=== PATIENT | male | born 1960 | race Caucasian/White ===

== ENCOUNTER 2016-11-19 14:49 | Inpatient (IN) | payer BC ==
[2016-11-19] MEDS ORDERED: Sodium Chloride 0.9% 1,000 ML IV STA ×3 (15:10→23:59)
--- NOTE | 2016-11-19 15:31 | ED PDOC ---
HPI: Abdomen Time Seen by Provider: 11/19/16 14:57 Chief Complaint (Nursing): GI Problem Chief Complaint (Provider): GI Problem History Per: Patient History/Exam Limitations: no limitations Onset/Duration Of Symptoms: Days (x3 days) Current Symptoms Are (Timing): Still Present Additional Complaint(s): 56 y/o male who presents to the emergency department with a complaint of one syncopal episode (lasted no more than 5 minutes) this morning. Associated with urinary incontinence, dry mouth, and sweating. Patient states on 11/17/2016 he woke up around 3am feeling nauseous and vomited black material once. Then reports on 11/18/2016 experiencing 1 episode of black diarrhea. Denies bowel incontinence, head injury, headache, paresthesia, weakness, chest pain, shortness of breath, palpitations, and abdominal pain. PMD: Dr. Jag Patten MD Past Medical History Reviewed: Historical Data, Nursing Documentation, Vital Signs Vital Signs: Last Vital Signs Temp 99.0 F 11/20/16 12:00 Pulse 83 11/20/16 16:00 Resp 18 11/20/16 14:00 BP 101/65 11/20/16 16:00 Pulse Ox 100 11/20/16 16:00 - Medical History PMH: Hypercholesterolemia - Surgical History Surgical History: No Surg Hx - Family History Family History: States: Unknown Family Hx - Social History Current smoker - smoking cessation education provided: No Ex-Smoker (has not smoked in the last 12 months): Yes Alcohol: > 2 Drinks/Day (4 shots vodka daily) Drugs: Cannabis, Cocaine - Home Medications Home Medications: Ambulatory Orders Medication Instructions Recorded No Known Home Med 11/20/16 - Allergies Allergies/Adverse Reactions: Allergies Allergy/AdvReac Type Severity Reaction Status Date / Time No Known Allergies Allergy Verified 11/19/16 14:51 Review of Systems ROS Statement: Except As Marked, All Systems Reviewed And Found Negative Constitutional: Positive for: Sweats. Negative for: Weakness, Other (head injury) ENT: Positive for: Other (Dry mouth) Cardiovascular: Negative for: Chest Pain, Palpitations Respiratory: Negative for: Shortness of Breath Gastrointestinal: Positive for: Nausea, Vomiting (1 episode: black material), Diarrhea (1 episode). Negative for: Abdominal Pain Genitourinary Male: Positive for: Incontinence (Urinary). Negative for: Other ( Bowel Incontinence) Neurological: Positive for: Other (1 syncopal episode (had resolved since; only lasted 5 minutes)). Negative for: Headache Physical Exam - Reviewed Nursing Documentation Reviewed: Yes Vital Signs Reviewed: Yes - Physical Exam Appears: Positive for: Non-toxic, No Acute Distress Head Exam: Positive for: ATRAUMATIC, NORMOCEPHALIC Skin: Positive for: Normal Color, Warm, Dry Eye Exam: Positive for: Normal appearance, PERRL. Negative for: Conjunctival injection ENT: Positive for: Normal ENT Inspection. Negative for: Pharyngeal Erythema Neck: Positive for: Normal, Supple Cardiovascular/Chest: Positive for: Regular Rate, Rhythm. Negative for: Murmur Respiratory: Positive for: Normal Breath Sounds. Negative for: Accessory Muscle Use, Respiratory Distress Gastrointestinal/Abdominal: Positive for: Soft, Tenderness (Minimal right sided abdominal tenderness). Negative for: Guarding, Rebound Rectal: Positive for: Other (w/ palliative care coordinator: Dark stool guaiac positive. No gross blood). Negative for: Normal Exam Neurologic/Psych: Positive for: Alert, Oriented - Laboratory Results Result Diagrams: 11/20/16 12:00 11/20/16 12:00 Medical Decision Making Medical Decision Making: Time: 14:57 Initial impression: GI Bleed and syncope Initial plan: --ABO/RH Type Stat --Type and Screen Stat --ABD & Pelvis IV Contrast --EKG (Electrocardiogram) --Alcohol Serum Stat --COMP Metabolic Panel --Drug Screen, Urine Stat --Troponin I Stat --ED Urine Dipstick (POC) --EKG-ED (EDNURTX) Stat --CBC w/ differential --Partial Thromboplastin Time (COAG) --Prothrombin Time (COAG) --Chest Portable (RAD) --Sodium Chloride 1,000 ml IV 500 mls/hr --Protonix INJ 40 mg IV --AccuCheck --Urinalysis Stat --Revaluation Scribe Attestation: Documented by Snow Mayer, acting as a scribe for Marlin Tran MD. Provider Scribe Attestation: All medical record entries made by the Scribe were at my direction and personally dictated by me. I have reviewed the chart and agree that the record accurately reflects my personal performance of the history, physical exam, medical decision making, and the department course for this patient. I have also personally directed, reviewed, and agree with the discharge instructions and disposition. ED OBSERVATION Time of observation admission: 19:00 - Observation admission statement Patient is being placed in observation because:: GI bleed Disposition - Clinical Impression Clinical Impression: Gastrointestinal hemorrhage - Patient ED Disposition Is Patient to be Admitted: Transfer of Care - Disposition Disposition Time: 19:00 Condition: STABLE Patient Signed Over To: Abdi Pressley Handoff Comments: Pending CT head/chest/abd/pelvis.
[2016-11-19 16:04] LABS: BASO # 0.1 K/uL (0.0-0.2); BASO % 0.6 % (0.0-2.0); EOS # 0.1 K/uL (0.0-0.7); EOS % 0.8 % (0.0-4.0); HEMATOCRIT 37.3 % (35.0-51.0); LYMPH # 2.8 K/uL (1.0-4.3); LYMPH % 15.3 % (20.0-40.0); MEAN CELL VOLUME 98.4 fl (80.0-94.0); MEAN CORPUSCULAR HEMOGLOBIN 32.5 pg (27.0-31.0); MEAN CORPUSCULAR HGB CONC 33.1 g/dL (33.0-37.0); MEAN PLATELET VOLUME 8.3 fl (7.2-11.7); MONO # 1.2 K/uL (0.0-0.8); MONO % 6.8 % (0.0-10.0); NEUT # 13.8 K/uL (1.8-7.0); NEUT % 76.5 % (50.0-75.0); RED CELL DISTRIBUTION WIDTH 12.8 % (11.5-14.5); WHITE BLOOD COUNT 18.1 K/uL (4.8-10.8)
[2016-11-19 16:08] LABS: PARTIAL THROMBOPLASTIN TIME 23.1 SECONDS (23.3-32.5)
[2016-11-19 16:25] LABS: ALB/GLOB RATIO 1.4 (1.0-2.1); ALCOHOL SERUM < 10 mg/dl (0-10); ALKALINE PHOSPHATASE 81 U/L (38-126); ALT/SGPT 26 U/L (21-72); AST/SGOT 25 U/L (17-59); BILIRUBIN,TOTAL 1.1 mg/dl (0.2-1.3); BLOOD UREA NITROGEN 64 mg/dl (9-20); CALCIUM 9.3 mg/dL (8.4-10.2); CARBON DIOXIDE 26 mmol/L (22-30); CHLORIDE 99 mmol/L (98-107); GFR AFRICAN-AMERICAN > 60; GLUCOSE,RANDOM 170 mg/dL (75-110); MAGNESIUM 1.6 MG/DL (1.6-2.3); POTASSIUM 4.6 MMOL/L (3.6-5.0); SODIUM 140 mmol/l (132-148); TOTAL PROTEIN 6.6 G/DL (6.3-8.2)
[2016-11-19 16:54] LABS: THYROID STIMULATING HORMONE 3.05 mIU/ML (0.46-4.68)
[2016-11-19 17:32] LABS: RBC URINE 1 /hpf (0-3); URINE BILIRUBIN NEGATIVE (NEGATIVE); URINE BLOOD NEGATIVE (NEGATIVE); URINE COLOR YELLOW (YELLOW); URINE GLUCOSE (UA) NEG (Normal); URINE KETONE 20 mg/dL (NEGATIVE); URINE LEUKOCYTE ESTERASE NEG Leu/uL (Negative); URINE PROTEIN NEGATIVE (NEGATIVE); URINE UROBILINOGEN 0.2-1.0 mg/dL (0.2-1.0); WBC URINE 2 /hpf (0-5)
--- NOTE | 2016-11-19 19:23 | ED PDOC ---
- Laboratory Results Result Diagrams: 11/20/16 00:08 11/19/16 15:59 - ECG O2 Sat by Pulse Oximetry: 100 - Critical Care Total Time (In Min): 60 Medical Decision Making Medical Decision Makin:00 Patient endorsed over to me by Marlin Tran MD, pending remainder of ED workup, reevaluation and disposition. 23:50 Patient is found on the floor next to the bed with (nurses patientside) covered in melanotic stool. Patient is pale, diaphoretic and initially confused. * vitals are immediately taken * 2 units of blood from the blood bank are ordered stat * second IV line is placed * second CBC is drawn * fluids are hanging * patient's color is returning * page GI at [facility] * admit to ICU 00:[address] Snyder, agrees with management. Says to put 2 additional units of blood, be made aware if patient has another episode, and to admit patient to the ICU. Discussed case with Herbert Lewis MD, says he will monitor the patient overnight at ICU. Discussed case with Alvin Painting MD who will admit the patient. Scribe Attestation: Documented by Rosalba Holt, acting as a scribe for Abdi Pressley MD. Provider Scribe Attestation: All medical record entries made by the Scribe were at my direction and personally dictated by me. I have reviewed the chart and agree that the record accurately reflects my personal performance of the history, physical exam, medical decision making, and the department course for this patient. I have also personally directed, reviewed, and agree with the discharge instructions and disposition. Scribe Attestation: Documented by Beti Aranda, acting as a scribe for Abdi Pressley MD. Provider Scribe Attestation: All medical record entries made by the Scribe were at my direction and personally dictated by me. I have reviewed the chart and agree that the record accurately reflects my personal performance of the history, physical exam, medical decision making, and the department course for this patient. I have also personally directed, reviewed, and agree with the discharge instructions and disposition. Disposition - Clinical Impression Clinical Impression: Gastrointestinal hemorrhage - POA Present On Arrival: None - Disposition Disposition: Admitted as In-Patient Disposition Time: 00:45 Condition: CRITICAL
[2016-11-19] MEDS ORDERED: Iodixanol 320 MG/ML 100 ML BOTTLE IV ONE (21:12)
[2016-11-19] MEDS ORDERED: Sodium Chloride 0.9% 50 ML IV ONE (22:03)
[2016-11-19] MEDS ORDERED: Pantoprazole 40 MG in Sodium Chloride 0.9% 100 ML IVPB STA (23:59)
[2016-11-20 00:13] LABS: BASO # 0.1 K/uL (0.0-0.2); BASO % 0.3 % (0.0-2.0); EOS % 0.1 % (0.0-4.0); HEMATOCRIT 27.1 % (35.0-51.0); LYMPH # 3.5 K/uL (1.0-4.3); LYMPH % 16.4 % (20.0-40.0); MEAN CELL VOLUME 99.5 fl (80.0-94.0); MEAN CORPUSCULAR HEMOGLOBIN 32.4 pg (27.0-31.0); MEAN CORPUSCULAR HGB CONC 32.6 g/dL (33.0-37.0); MONO # 1.5 K/uL (0.0-0.8); MONO % 7.3 % (0.0-10.0); NEUT # 16.1 K/uL (1.8-7.0); NEUT % 75.9 % (50.0-75.0); RED CELL DISTRIBUTION WIDTH 12.6 % (11.5-14.5); WHITE BLOOD COUNT 21.3 K/uL (4.8-10.8)
[2016-11-20] MEDS ORDERED: Sterile Water 10 ML IV ONE (00:16)
--- NOTE | 2016-11-20 00:42 | CP.PCM.CON ---
History of Present Illness - History of Present Illness History of Present Illness: CC: melena, hematemesis HPI: This is a 56 y/o male with MHx significant for heavy EtOH use who comes to the ER initially with c/o a syncopal episode this AM (about 5 min per his estimate). His history is also significant for having episodes of dark black vomit yesterday and melena since yesterday. He had never had these symptoms before. Denies any CP/SOB/Abd pain/f/c. In the ER, patient had a massive episode of melena and another syncopal/presyncopal episode. ROS: 14 systems reviewed, negative other than HPI MHx/SHx: None aside from heavy EtOH use Allergies: NKDA Medications: None Family Hx: None patient is able to recount Social Hx: lives alone, 4+ drinks daily for years, no tobacco, occasional cocaine No surrogate decision maker. Patient is willing to receive CPR and be intubated if necessary. Past Patient History - Past Social History Alcohol: > 2 Drinks/Day (4 shots vodka daily) Drugs: Cannabis, Cocaine - CARDIAC Hx Hypercholesterolemia: Yes - PSYCHIATRIC Hx Substance Use: Yes Meds Allergies/Adverse Reactions: Allergies Allergy/AdvReac Type Severity Reaction Status Date / Time No Known Allergies Allergy Verified 11/19/16 14:51 - Medications Medications: Current Medications Sodium Chloride (Sodium Chloride 0.9%) 1,000 mls @ 1,000 mls/hr IV .Q1H STA Stop: 11/20/16 00:58 Pantoprazole Sodium 40 mg/ (Sodium Chloride) 100 mls @ 20 mls/hr IVPB STAT STA PRN Reason: 8 MG/HR Stop: 11/20/16 04:58 Physical Exam - Constitutional Appears: No Acute Distress - Head Exam Head Exam: ATRAUMATIC, NORMOCEPHALIC - Eye Exam Eye Exam: EOMI, PERRL - ENT Exam ENT Exam: Mucous Membranes Dry - Neck Exam Neck exam: Positive for: Full Rom - Respiratory Exam Respiratory Exam: Clear to Auscultation Bilateral, NORMAL BREATHING PATTERN - Cardiovascular Exam Cardiovascular Exam: Tachycardia, +S1, +S2 - GI/Abdominal Exam GI & Abdominal Exam: Normal Bowel Sounds, Soft - Extremities Exam Extremities exam: Positive for: full ROM, normal inspection - Neurological Exam Neurological exam: Alert, CN II-XII Intact, Oriented x3 - Psychiatric Exam Psychiatric exam: Normal Affect, Normal Mood - Skin Skin Exam: Dry, Pallor, Warm Results - Vital Signs Recent Vital Signs: Last Vital Signs Temp 97.7 F 11/19/16 14:51 Pulse 111 H 11/19/16 18:30 Resp 20 11/19/16 18:30 BP 92/60 L 11/19/16 18:30 Pulse Ox 100 11/20/16 00:26 - Labs Result Diagrams: 11/20/16 00:08 11/19/16 15:59 Labs: Laboratory Results - last 24 hr 11/19/16 11/19/16 11/20/16 20:49 23:00 00:02 WBC RBC Hgb Hct MCV MCH MCHC RDW Plt Count MPV Neut % (Auto) Lymph % (Auto) Divide % (Auto) Eos % (Auto) Baso % (Auto) Neut # Lymph # Divide # Eos # Baso # NT-Pro-B Natriuret Pep 139 Blood Type Confirm O POSITIVE Crossmatch See Detail 11/20/16 00:08 WBC 21.3 H RBC 2.72 L Hgb 8.8 L D Hct 27.1 L MCV 99.5 H MCH 32.4 H MCHC 32.6 L RDW 12.6 Plt Count 213 MPV 8.0 Neut % (Auto) 75.9 H Lymph % (Auto) 16.4 L Divide % (Auto) 7.3 Eos % (Auto) 0.1 Baso % (Auto) 0.3 Neut # 16.1 H Lymph # 3.5 Divide # 1.5 H Eos # 0.0 Baso # 0.1 NT-Pro-B Natriuret Pep Blood Type Confirm Crossmatch - EKG Data EKG shows normal: Sinus rhythm Rate: Normal - Impressions Impression: Intra vent conduction delay - Imaging and Cardiology Chest x-ray Status: Image reviewed by me (no acute findings), Report reviewed by me CT scan - abdomen Status: Pending Assessment & Plan (1) Gastrointestinal hemorrhage Assessment and Plan: 56 y/o male with likely EtOH related GI hemorrhage with tachycardia/borderline hypotension. -ICU admission -Patient to receive 2 more U of PRBC -Protonix drip -GI consult (informed) -No DVT PPx at this time given active bleeding Status: Acute
[2016-11-20] MEDS ORDERED: Sodium Chloride 0.9% 1,000 ML IV SCH (00:45)
[2016-11-20] MEDS: Pantoprazole 40 MG in Sodium Chloride 0.9% 100 ML IVPB SCH ×5 (01:45→21:04)
[2016-11-20 02:11] VITALS: BMI 29.7
[2016-11-20] MEDS ORDERED: Multivitamin (MVI) 10 ML, Thiamine 100 MG, Folic Acid 1 MG in Sodium Chloride 0.9% 1,00... IV ONE (07:22)
--- NOTE | 2016-11-20 08:29 | RAD ---
HISTORY: Syncope COMPARISON: No prior. FINDINGS: LUNGS: Hazy opacity in the right lung base. Nodular opacity seen in the right hilum. PLEURA: No significant pleural effusion identified, no pneumothorax apparent. CARDIOVASCULAR: Normal. OSSEOUS STRUCTURES: No significant abnormalities. VISUALIZED UPPER ABDOMEN: Upper abdomen is suboptimally evaluated. OTHER FINDINGS: None. IMPRESSION: Mild hazy opacity in the right lung base which could represent atelectasis versus pneumonia. Nodular opacity in the right hilum. Recommend PA lateral chest radiographs.
[2016-11-20] MEDS ORDERED: Pneumococcal 23-Valent Vaccine IM ONE (09:00)
[2016-11-20] MEDS ORDERED: Influenza Vaccine(5yr & older) 0.5 ML/45 MCG IM ONE (09:00)
--- NOTE | 2016-11-20 09:18 | CP.PCM.HP ---
History of Present Illness - History of Present Illness History of Present Illness: pt admitted for gib. states started w/ nausea then went to bathroom and had large black bm, had some n/v that was black. described as "crude oil". no brbpr. has been drinking 4-5 drinks of vodca cranberry x 30yrs. recently quit smoking. pt os rmg [facility]. no othe rmedical problems. no abd pain. nof c , n/v/d at present. bw noted. events in er noted. all imaging noted. gi consult pending. pt rec'd prbc overnight. am labs pending. case d/c w/ icu attending. Present on Admission - Present on Admission Any Indicators Present on Admission: No Review of Systems - Gastrointestinal Gastrointestinal: As Per HPI, Hematemesis, Hematochezia Past Patient History - Past Medical History & Family History Past Medical History?: Yes - Past Social History Smoking Status: Former Smoker - CARDIAC Hx Cardiac Disorders: Yes - PULMONARY Hx Respiratory Disorders: Yes - NEUROLOGICAL Hx Neurological Disorder: No - HEENT Hx HEENT Problems: No - RENAL Hx Chronic Kidney Disease: No - ENDOCRINE/METABOLIC Hx Endocrine Disorders: No - HEMATOLOGICAL/ONCOLOGICAL Hx Blood Disorders: No - INTEGUMENTARY Hx Dermatological Problems: No - MUSCULOSKELETAL/RHEUMATOLOGICAL Hx Musculoskeletal Disorders: No - GENITOURINARY/GYNECOLOGICAL Hx Genitourinary Disorders: No - PSYCHIATRIC Hx Psychophysiologic Disorder: No - ANESTHESIA Hx Anesthesia: No Meds Allergies/Adverse Reactions: Allergies Allergy/AdvReac Type Severity Reaction Status Date / Time No Known Allergies Allergy Verified 11/19/16 14:51 Physical Exam - Constitutional Appears: Well, Non-toxic, No Acute Distress - Head Exam Head Exam: ATRAUMATIC, NORMAL INSPECTION, NORMOCEPHALIC - Eye Exam Eye Exam: EOMI, Normal appearance, PERRL Pupil Exam: NORMAL ACCOMODATION, PERRL - ENT Exam ENT Exam: Mucous Membranes Moist, Normal Exam - Neck Exam Neck exam: Positive for: Normal Inspection - Respiratory Exam Respiratory Exam: Clear to Auscultation Bilateral, NORMAL BREATHING PATTERN - Cardiovascular Exam Cardiovascular Exam: REGULAR RHYTHM, RRR, +S1, +S2 - GI/Abdominal Exam GI & Abdominal Exam: Normal Bowel Sounds, Soft. absent: Tenderness - Extremities Exam Extremities exam: Positive for: full ROM, normal capillary refill, normal inspection, pedal pulses present - Back Exam Back exam: FULL ROM, NORMAL INSPECTION - Neurological Exam Neurological exam: Alert, CN II-XII Intact, Normal Gait, Oriented x3, Reflexes Normal - Psychiatric Exam Psychiatric exam: Normal Affect, Normal Mood - Skin Skin Exam: Dry, Intact, Normal Color, Warm Results - Vital Signs Recent Vital Signs: Last Vital Signs Temp 99.9 F H 11/20/16 07:37 Pulse 84 11/20/16 07:37 Resp 14 11/20/16 07:37 BP 90/54 L 11/20/16 07:37 Pulse Ox 98 11/20/16 07:37 - Labs Result Diagrams: 11/20/16 00:08 11/19/16 15:59 Assessment & Plan (1) Gastrointestinal hemorrhage Assessment and Plan: gi protonix gtt rocephin ivf prbc icu care monitor for alcohol withdrawal Status: Acute (2) DVT prophylaxis Assessment and Plan: scd nad aehose no anticoag r/t gib Status: Acute Decision To Admit - Pt Status Changed To: Hospital Disposition Of: Inpatient - Admit Certification Admit to Inpatient:: After my assessment, the patient will require hospitalization for at least two midnights. This is because of the severity of symptoms shown, intensity of services needed, and/or the medical risk in this patient being treated as an outpatient. - . Bed Request Type: Intensive Care Admitting Physician: Shani Reza
--- NOTE | 2016-11-20 09:35 | CARD ---
APPROVED REPORT EKG Measurement Heart [id number] <Conclusion> Normal sinus rhythm Right bundle branch block Abnormal ECG
--- NOTE | 2016-11-20 09:49 | CT ---
PROCEDURE: CT Chest with contrast (Pulmonary Angiogram) HISTORY: SOB COMPARISON: None available. TECHNIQUE: Axial computed tomography images were obtained of the chest in the pulmonary arterial phase of enhancement. Coronal and sagittal reformatted images were created and reviewed. Intravenous contrast dose: 100 mL. Radiation dose: Total exam DLP = 1087.27 mGy-cm. This CT was performed using one or more of the following dose reduction techniques: Automated exposure control, adjustment of the mA and/or KV according to patient size, and/or use of iterative reconstruction technique. FINDINGS: PULMONARY ARTERIES: No evidence of filling defects in the main, left and right and proximal lobar arteries. Segmental and subsegmental arteries suboptimally evaluated due to poor timing of contrast bolus and respiratory motion artifact. AORTA: No evidence of aneurysm. The study is not diagnostic for aortic dissection. LUNGS: Centrilobular emphysematous changes. PLEURAL SPACES: Unremarkable. No effusion or pneuomothorax. HEART: Unremarkable. No cardiomegaly. No significant pericardial effusion. LYMPH NODES: No lymphadenopathy. BONES, CHEST WALL: Unremarkable. No fracture or destructive lesion OTHER FINDINGS: Mild thickening of the esophagus with bubbly soft tissue density seen in the mid esophagus. This could be food particles versus mucous. Evaluate for reflux disease. Indicated, upper endoscopy can be obtained. IMPRESSION: Limited evaluation. No large filling defect main, left and right and proximal lobar arteries. Segmental and subsegmental arteries suboptimally evaluated due to poor timing of contrast bolus and respiratory motion artifact. Centrilobular emphysematous changes. Please note that this report is in general agreement with the preliminary report provided by [facility].
--- NOTE | 2016-11-20 09:56 | CT ---
PROCEDURE: CT HEAD WITHOUT CONTRAST. HISTORY: Syncope COMPARISON: None available. TECHNIQUE: Axial computed tomography images were obtained through the head/brain without intravenous contrast. Mildly limited evaluation due to artifact from patient motion. Radiation dose: Total exam DLP = 1272.07 mGy-cm. This CT was performed using one or more of the following dose reduction techniques: Automated exposure control, adjustment of the mA and/or KV according to patient size, and/or use of iterative reconstruction technique. FINDINGS: HEMORRHAGE: No intracranial hemorrhage. BRAIN: No mass effect or edema. Mild volume loss. No CT evidence of acute territorial infarct. VENTRICLES: Unremarkable. No hydrocephalus. CALVARIUM: Unremarkable. PARANASAL SINUSES: Unremarkable as visualized. No significant inflammatory changes. MASTOID AIR CELLS: Unremarkable as visualized. No inflammatory changes. OTHER FINDINGS: None. IMPRESSION: No CT evidence of acute intracranial hemorrhage or acute territorial infarct. Acute infarction may be CT occult within first 24 hours. If a focal deficit persists, consider followup CT or MRI for further evaluation. Please note that this report is in general agreement with the preliminary report provided by [facility].
--- NOTE | 2016-11-20 10:07 | CT ---
PROCEDURE: CT Abdomen and Pelvis with contrast HISTORY: UGIB, LGIB COMPARISON: None. TECHNIQUE: Computed tomography images of the abdomen and pelvis were obtained. Coronal and sagittal reformatted images were reconstructed. Contrast dose: 100 mL. Radiation dose: Total exam DLP = 1087.27 mGy-cm. This CT was performed using one or more of the following dose reduction techniques: Automated exposure control, adjustment of the mA and/or KV according to patient size, and/or use of iterative reconstruction technique. FINDINGS: LOWER THORAX: Please refer to CT chest done on the same day. LIVER: Hypoattenuation of the liver parenchyma is suggestive of hepatic steatosis. GALLBLADDER AND BILE DUCTS: Collapsed gallbladder limiting evaluation. No significant intra or extrahepatic biliary ductal dilatation. PANCREAS: Fatty infiltration of the pancreas. SPLEEN: Unremarkable. ADRENALS: Unremarkable. No mass. KIDNEYS AND URETERS: Unremarkable. No hydronephrosis. No solid mass. VASCULATURE: Mild scattered atherosclerotic calcification throughout the abdominal aorta and its main branches. No abdominal aortic aneurysm. BOWEL: No bowel obstruction. In the medial wall of the gastroesophageal junction, there is a irregular masslike protuberance, measuring 2.6 x 1.5 x 1.8 centimeters, best seen on image 43, series 8. Underlying mass cannot be excluded. Upper endoscopy recommended. In the mesentery, just left of midline there is a soft tissue nodule measuring 1 x 1.6 x 1.4 centimeters. Minimal peripheral calcifications are seen surrounding this nodule. APPENDIX: Normal appendix. PERITONEUM: Unremarkable. No free fluid. No free air. LYMPH NODES: Unremarkable. No enlarged lymph nodes. BLADDER: Unremarkable. REPRODUCTIVE: Unremarkable. BONES: Diffuse sclerotic density seen in the right ischial bone. Additional sclerotic density also noted in the posterior right pubic bone. OTHER FINDINGS: Small fat containing right inguinal hernia. IMPRESSION: In the medial wall of the gastroesophageal junction, there is a irregular masslike protuberance, measuring 2.6 x 1.5 x 1.8 centimeters, best seen on image 43, series 8. While this could represent collapsed gastroesophageal junction, underlying mass should be considered. Upper endoscopy recommended. Sclerotic density in the right ischial bone and in the posterior right pubic bone. This is nonspecific. Bone scan can be obtained to evaluate for any metabolic activity. Nonspecific 1 x 1.6 x 1.4 centimeter soft tissue nodule in the mesentery with minimal peripheral calcifications. Hypoattenuation of the liver suggestive of hepatic steatosis. Please note that this report is discordant with preliminary report.
[2016-11-20 12:23] LABS: BASO # 0.1 K/uL (0.0-0.2); BASO % 0.4 % (0.0-2.0); EOS # 0.1 K/uL (0.0-0.7); EOS % 0.5 % (0.0-4.0); HEMATOCRIT 28.8 % (35.0-51.0); LYMPH # 1.9 K/uL (1.0-4.3); LYMPH % 16.4 % (20.0-40.0); MEAN CORPUSCULAR HEMOGLOBIN 30.7 pg (27.0-31.0); MEAN CORPUSCULAR HGB CONC 34.1 g/dL (33.0-37.0); MEAN PLATELET VOLUME 7.7 fl (7.2-11.7); MONO # 0.8 K/uL (0.0-0.8); MONO % 6.8 % (0.0-10.0); NEUT # 8.9 K/uL (1.8-7.0); NEUT % 75.9 % (50.0-75.0); RED CELL DISTRIBUTION WIDTH 17.6 % (11.5-14.5); WHITE BLOOD COUNT 11.8 K/uL (4.8-10.8)
[2016-11-20 12:25] LABS: CHLORIDE 105 mmol/L (98-107); SODIUM 138 mmol/l (132-148)
[2016-11-20 12:28] LABS: CARBON DIOXIDE 26 mmol/L (22-30); GFR AFRICAN-AMERICAN > 60; GLUCOSE,RANDOM 100 mg/dL (75-110)
[2016-11-20 12:29] LABS: BLOOD UREA NITROGEN 38 mg/dl (9-20); CALCIUM 8.1 mg/dL (8.4-10.2); LIPASE 30 U/L (23-300)
[2016-11-20 12:30] LABS: MEAN CELL VOLUME 90.1 fl (80.0-94.0)
--- NOTE | 2016-11-20 12:58 | CP.PCM.CON ---
History of Present Illness - History of Present Illness History of Present Illness: 56 yo male admitted with hematemesis and melena. Patient uses alcohol daily. Over the past few days feeling dizzy. Review of Systems - Constitutional Constitutional: absent: Chills - EENT Eyes: absent: Blurred Vision Nose/Mouth/Throat: absent: Epistaxis - Cardiovascular Cardiovascular: absent: Chest Pain - Respiratory Respiratory: absent: Cough - Gastrointestinal Gastrointestinal: absent: Abdominal Pain - Genitourinary Genitourinary: absent: Change in Urinary Stream Past Patient History - Past Medical History & Family History Past Medical History?: Yes - Past Social History Smoking Status: Former Smoker - CARDIAC Hx Cardiac Disorders: Yes - PULMONARY Hx Respiratory Disorders: Yes - NEUROLOGICAL Hx Neurological Disorder: No - HEENT Hx HEENT Problems: No - RENAL Hx Chronic Kidney Disease: No - ENDOCRINE/METABOLIC Hx Endocrine Disorders: No - HEMATOLOGICAL/ONCOLOGICAL Hx Blood Disorders: No - INTEGUMENTARY Hx Dermatological Problems: No - MUSCULOSKELETAL/RHEUMATOLOGICAL Hx Musculoskeletal Disorders: No - GENITOURINARY/GYNECOLOGICAL Hx Genitourinary Disorders: No - PSYCHIATRIC Hx Psychophysiologic Disorder: No - ANESTHESIA Hx Anesthesia: No Meds Allergies/Adverse Reactions: Allergies Allergy/AdvReac Type Severity Reaction Status Date / Time No Known Allergies Allergy Verified 11/19/16 14:51 - Medications Medications: Current Medications Sodium Chloride (Sodium Chloride 0.9%) 1,000 mls @ 100 mls/hr IV .Q10H IGGY Stop: 11/20/16 20:44 Last Admin: 11/20/16 02:05 Dose: 100 mls/hr Pantoprazole Sodium 40 mg/ (Sodium Chloride) 100 mls @ 20 mls/hr IVPB Q5H IGGY PRN Reason: 8 MG/HR Last Admin: 11/20/16 11:16 Dose: 20 mls/hr Ceftriaxone Sodium 1 gm/ (Sodium Chloride) 100 mls @ 100 mls/hr IVPB DAILY IGGY Last Admin: 11/20/16 08:37 Dose: 100 mls/hr Multivitamins/Vitamin C 10 ml/Thiamine HCl 100 mg/ Folic Acid 1 mg/ Sodium Chloride 1,011.2 mls @ 50 mls/hr IV .[id number] ONE Stop: 11/21/16 03:35 Last Admin: 11/20/16 11:18 Dose: 50 mls/hr Ondansetron HCl (Zofran Inj) 4 mg IVP Q6H PRN PRN Reason: Nausea/Vomiting Physical Exam - Head Exam Head Exam: ATRAUMATIC - Eye Exam Eye Exam: Normal appearance Pupil Exam: NORMAL ACCOMODATION - ENT Exam ENT Exam: Mucous Membranes Moist - Neck Exam Neck exam: Positive for: Normal Inspection - Respiratory Exam Respiratory Exam: Clear to Auscultation Bilateral - Cardiovascular Exam Cardiovascular Exam: REGULAR RHYTHM - GI/Abdominal Exam GI & Abdominal Exam: Normal Bowel Sounds, Soft. absent: Tenderness Results - Vital Signs Recent Vital Signs: Last Vital Signs Temp 99.9 F H 11/20/16 07:37 Pulse 84 11/20/16 07:37 Resp 14 11/20/16 07:37 BP 90/54 L 11/20/16 07:37 Pulse Ox 98 11/20/16 07:37 - Labs Result Diagrams: 11/20/16 12:00 11/20/16 12:00 Labs: Laboratory Results - last 24 hr 11/20/16 12:00 WBC 11.8 H RBC 3.20 L Hgb 9.8 L Hct 28.8 L MCV 90.1 D MCH 30.7 MCHC 34.1 RDW 17.6 H Plt Count 129 L D MPV 7.7 Neut % (Auto) 75.9 H Lymph % (Auto) 16.4 L [place] % (Auto) 6.8 Eos % (Auto) 0.5 Baso % (Auto) 0.4 Neut # 8.9 H Lymph # 1.9 [place] # 0.8 Eos # 0.1 Baso # 0.1 Sodium 138 Potassium 4.0 Chloride 105 Carbon Dioxide 26 Anion Gap 12 BUN 38 H Creatinine 0.9 Est GFR ( Amer) > 60 Est GFR (Non-Af Amer) > 60 Random Glucose 100 Calcium 8.1 L Total Creatine Kinase 49 L Lipase 30 Assessment & Plan (1) Gastrointestinal hemorrhage Assessment and Plan: Massive upper GI bleeding. Despite alcohol history no evidence on labs or imaging of cirrhosis. No evidence of active bleeding since last night. Pantoprazole 8 mg/hour. May have clears today. NPO past midnight. CT shows possible lesion at EG junction. Upper endoscopy tomorrow. If patient develops active bleeding will do it emergently sooner. Status: Acute
[2016-11-20] MEDS ORDERED: DiphenhydrAMINE 50 mg/ml Inj IVP STA (20:57)
[2016-11-20 22:33] LABS: RBC URINE 274 /hpf (0-3); URINE BILIRUBIN NEGATIVE (NEGATIVE); URINE BLOOD LARGE (NEGATIVE); URINE COLOR YELLOW (YELLOW); URINE GLUCOSE (UA) NEG (Normal); URINE KETONE NEGATIVE (NEGATIVE); URINE LEUKOCYTE ESTERASE NEG Leu/uL (Negative); URINE PROTEIN NEGATIVE (NEGATIVE); URINE UROBILINOGEN 0.2-1.0 mg/dL (0.2-1.0); WBC URINE 1 /hpf (0-5)
[2016-11-21] MEDS: Pantoprazole 40 MG in Sodium Chloride 0.9% 100 ML IVPB SCH ×2 (02:15→06:47)
[2016-11-21 05:51] LABS: BASO % 0.4 % (0.0-2.0); EOS # 0.1 K/uL (0.0-0.7); EOS % 0.8 % (0.0-4.0); LYMPH # 1.2 K/uL (1.0-4.3); LYMPH % 14.4 % (20.0-40.0); MEAN CELL VOLUME 90.5 fl (80.0-94.0); MEAN CORPUSCULAR HEMOGLOBIN 31.1 pg (27.0-31.0); MEAN CORPUSCULAR HGB CONC 34.4 g/dL (33.0-37.0); MEAN PLATELET VOLUME 8.2 fl (7.2-11.7); MONO # 0.8 K/uL (0.0-0.8); MONO % 9.6 % (0.0-10.0); NEUT # 6.1 K/uL (1.8-7.0); NEUT % 74.8 % (50.0-75.0); RED CELL DISTRIBUTION WIDTH 17.9 % (11.5-14.5); WHITE BLOOD COUNT 8.2 K/uL (4.8-10.8)
[2016-11-21 06:02] LABS: BLOOD UREA NITROGEN 20 mg/dl (9-20); CALCIUM 8.2 mg/dL (8.4-10.2); CARBON DIOXIDE 25 mmol/L (22-30); CHLORIDE 104 mmol/L (98-107); GFR AFRICAN-AMERICAN > 60; GLUCOSE,RANDOM 90 mg/dL (75-110); POTASSIUM 3.6 MMOL/L (3.6-5.0); SODIUM 139 mmol/l (132-148)
--- NOTE | 2016-11-21 07:30 | CP.PCM.PN ---
Subjective - Date & Time of Evaluation Date of Evaluation: 11/21/16 Time of Evaluation: 07:30 - Subjective Subjective: pt doing wellm no distress. no further n/v/d, no abd pain. for egd today. bw noted. nsr on monitor. banana bag infusing Objective - Vital Signs/Intake and Output Vital Signs (last 24 hours): Temp Pulse Resp BP Pulse Ox 100 F H 79 21 93/60 L 96 11/21/16 04:00 11/21/16 06:00 11/21/16 06:00 11/21/16 06:00 11/21/16 06:00 Intake and Output: 11/21/16 11/21/16 06:59 18:59 Intake Total 960 Output Total 1100 Balance -140 - Medications Medications: Current Medications Pantoprazole Sodium 40 mg/ (Sodium Chloride) 100 mls @ 20 mls/hr IVPB Q5H IGGY PRN Reason: 8 MG/HR Last Admin: 11/21/16 06:47 Dose: 20 mls/hr Ceftriaxone Sodium 1 gm/ (Sodium Chloride) 100 mls @ 100 mls/hr IVPB DAILY IGGY Last Admin: 11/20/16 08:37 Dose: 100 mls/hr Ondansetron HCl (Zofran Inj) 4 mg IVP Q6H PRN PRN Reason: Nausea/Vomiting - Labs Labs: 11/21/16 05:10 11/21/16 05:10 PT 11.3 SECONDS (9.6-11.2) H 11/19/16 15:14 INR 1.09 (0.92-1.08) H 11/19/16 15:14 APTT 23.1 SECONDS (23.3-32.5) L 11/19/16 15:14 - Constitutional Appears: Well, Non-toxic, No Acute Distress - Head Exam Head Exam: ATRAUMATIC, NORMAL INSPECTION, NORMOCEPHALIC - Eye Exam Eye Exam: EOMI, Normal appearance, PERRL Pupil Exam: NORMAL ACCOMODATION, PERRL - ENT Exam ENT Exam: Mucous Membranes Moist, Normal Exam - Neck Exam Neck Exam: Full ROM, Normal Inspection. absent: Lymphadenopathy - Respiratory Exam Respiratory Exam: Clear to Ausculation Bilateral, NORMAL BREATHING PATTERN - Cardiovascular Exam Cardiovascular Exam: REGULAR RHYTHM, RRR, +S1, +S2. absent: Murmur - GI/Abdominal Exam GI & Abdominal Exam: Soft, Normal Bowel Sounds. absent: Tenderness - Extremities Exam Extremities Exam: Full ROM, Normal Capillary Refill, Normal Inspection. absent : Joint Swelling, Pedal Edema - Back Exam Back Exam: NORMAL INSPECTION - Neurological Exam Neurological Exam: Alert, Awake, CN II-XII Intact, Normal Gait, Oriented x3 - Psychiatric Exam Psychiatric exam: Normal Affect, Normal Mood - Skin Skin Exam: Dry, Intact, Normal Color, Warm Assessment and Plan (1) Gastrointestinal hemorrhage Status: Acute (2) DVT prophylaxis Status: Acute - Assessment and Plan (Free Text) Assessment: (1) Gastrointestinal hemorrhage Assessment and Plan: gi protonix gtt rocephin ivf prbc icu care monitor for alcohol withdrawal trending h/h Status: Acute (2) DVT prophylaxis Assessment and Plan: scd nad aehose no anticoag r/t gib Status: Acute
--- NOTE | 2016-11-21 08:52 | RAD ---
PROCEDURE: CHEST RADIOGRAPH, 1 VIEW HISTORY: fever COMPARISON: Comparison is made to 11/19/2016 FINDINGS: LUNGS: Clear. PLEURA: No pneumothorax or pleural fluid seen. CARDIOVASCULAR: Normal. OSSEOUS STRUCTURES: No significant abnormalities. VISUALIZED UPPER ABDOMEN: Normal. OTHER FINDINGS: None. IMPRESSION: No active disease. No significant interval change compared to the previous exam.
--- NOTE | 2016-11-21 11:06 | CP.PCM.PN ---
Subjective - Date & Time of Evaluation Date of Evaluation: 11/21/16 Time of Evaluation: 11:05 Objective - Vital Signs/Intake and Output Vital Signs (last 24 hours): Temp Pulse Resp BP Pulse Ox 98.9 F 77 22 107/60 99 11/21/16 07:49 11/21/16 07:49 11/21/16 07:49 11/21/16 07:49 11/21/16 07:49 Intake and Output: 11/21/16 11/21/16 06:59 18:59 Intake Total 960 Output Total 1100 Balance -140 - Medications Medications: Current Medications Pantoprazole Sodium 40 mg/ (Sodium Chloride) 100 mls @ 20 mls/hr IVPB Q5H IGGY PRN Reason: 8 MG/HR Last Admin: 11/21/16 06:47 Dose: 20 mls/hr Ceftriaxone Sodium 1 gm/ (Sodium Chloride) 100 mls @ 100 mls/hr IVPB DAILY IGGY Last Admin: 11/20/16 08:37 Dose: 100 mls/hr Dextrose/Sodium Chloride (Dextrose 5%-0.9% Ns 500 Ml) 1,000 mls @ 75 mls/hr IV .[id number] IGGY Ondansetron HCl (Zofran Inj) 4 mg IVP Q6H PRN PRN Reason: Nausea/Vomiting - Labs Labs: 11/21/16 05:10 11/21/16 05:10 PT 11.3 SECONDS (9.6-11.2) H 11/19/16 15:14 INR 1.09 (0.92-1.08) H 11/19/16 15:14 APTT 23.1 SECONDS (23.3-32.5) L 11/19/16 15:14
--- NOTE | 2016-11-21 11:11 | CP.CCUPN ---
<Wade Marie - Last Filed: 11/21/16 16:54> CCU Subjective - Physician Review Events Since Last Encounter (Free Text): 11/21/16 13:09 Patient AAOx3 sitting in bed upright in no distress with no events overnight still NPO and on I.V. fluids hemodynamically stable s/p transfusion of 4 units PRBC pending evaluation by GI for endoscopy. 11/21/16 14:28 CCU Objective - Vital Signs / Intake & Output Vital Signs (Last 4 hours): Vital Signs Temp Pulse Resp BP Pulse Ox 11/21/16 10:00 97 H 20 97/62 L 98 11/21/16 07:49 98.9 F 77 22 107/60 99 Intake and Output (Last 8hrs): Intake & Output 11/20/16 11/21/16 11/21/16 22:59 06:59 14:59 Intake Total 400 560 Output Total 1400 500 Balance -1000 60 Intake: IV 280 560 Oral 120 Output: Urine 1400 500 Urine, Voided 1400 500 Other: # Voids Urine, Voided 4 - Physical Exam Head: Positive for: Atraumatic, Normocephalic Conjunctiva: Negative for: Icteric Neck: Positive for: Normal Range of Motion Respiratory/Chest: Positive for: Clear to Auscultation Cardiovascular: Positive for: Regular Rate and Rhythm, Normal S1, S2 Abdomen: Negative for: Tenderness Lower Extremity: Positive for: Normal Inspection Neurological: Positive for: Normal Sensory Function, Memory Normal Skin: Positive for: Warm Psychiatric: Positive for: Alert, Oriented x 3 - Medications Active Medications: Active Medications Generic Name Dose Route Start Last Admin Trade Name Trq PRN Reason Stop Dose Admin Pantoprazole Sodium 40 mg/ 100 mls @ 20 mls/hr 11/20/16 00:45 11/21/16 06:47 Sodium Chloride IVPB 20 mls/hr Q5H IGGY Administration 8 MG/HR Ceftriaxone Sodium 1 gm/ 100 mls @ 100 mls/hr 11/20/16 09:00 11/20/16 08:37 Sodium Chloride IVPB 100 mls/hr DAILY IGGY Administration Dextrose/Sodium Chloride 1,000 mls @ 75 mls/hr 11/21/16 11:00 Dextrose 5%-0.9% Ns 500 Ml IV .[id number] IGGY Ondansetron HCl 4 mg 11/20/16 00:39 Zofran Inj IVP Q6H PRN Nausea/Vomiting - Patient Studies Lab Studies: Lab Studies 11/21/16 11/20/16 11/20/16 Range/Units 05:10 21:00 20:30 WBC 8.2 (4.8-10.8) K/uL RBC 2.99 L (4.40-5.90) Mil/uL Hgb 9.3 L (12.0-18.0) g/dL Hct 27.0 L (35.0-51.0) % MCV 90.5 (80.0-94.0) fl MCH 31.1 H (27.0-31.0) pg MCHC 34.4 (33.0-37.0) g/dL RDW 17.9 H (11.5-14.5) % Plt Count 110 L (130-400) K/uL MPV 8.2 (7.2-11.7) fl Neut % (Auto) 74.8 (50.0-75.0) % Lymph % (Auto) 14.4 L (20.0-40.0) % [place] % (Auto) 9.6 (0.0-10.0) % Eos % (Auto) 0.8 (0.0-4.0) % Baso % (Auto) 0.4 (0.0-2.0) % Neut # 6.1 (1.8-7.0) K/uL Lymph # 1.2 (1.0-4.3) K/uL [place] # 0.8 (0.0-0.8) K/uL Eos # 0.1 (0.0-0.7) K/uL Baso # 0.0 (0.0-0.2) K/uL Sodium 139 (132-148) mmol/l Potassium 3.6 (3.6-5.0) MMOL/L Chloride 104 (98-107) mmol/L Carbon Dioxide 25 (22-30) mmol/L Anion Gap 14 (10-20) BUN 20 (9-20) mg/dl Creatinine 0.8 (0.8-1.5) mg/dL Est GFR ( Amer) > 60 Est GFR (Non-Af Amer) > 60 Random Glucose 90 (75-110) mg/dL Lactic Acid (0.7-2.1) MMOL/L Calcium 8.2 L (8.4-10.2) mg/dL Total Creatine Kinase (55-170) U/L Lipase (23-300) U/L Urine Color Yellow (YELLOW) Urine Clarity Clear (Clear) Urine pH 6.0 (5.0-8.0) Ur Specific [place] 1.018 (1.003-1.030) Urine Protein Negative (NEGATIVE) mg/dL Urine Glucose (UA) Neg (Normal) mg/dL Urine Ketones Negative (NEGATIVE) mg/dL Urine Blood Large (NEGATIVE) Urine Nitrate Negative (NEGATIVE) Urine Bilirubin Negative (NEGATIVE) Urine Urobilinogen 0.2-1.0 (0.2-1.0) mg/dL Ur Leukocyte Esterase Neg (Negative) Benjamin/uL Urine RBC (Auto) 274 H (0-3) /hpf Urine Microscopic WBC 1 (0-5) /hpf Influenza Typ A,B (EIA) Negative for flu a/b (NEGATIVE) 11/20/16 Range/Units 12:00 WBC 11.8 H (4.8-10.8) K/uL RBC 3.20 L (4.40-5.90) Mil/uL Hgb 9.8 L (12.0-18.0) g/dL Hct 28.8 L (35.0-51.0) % MCV 90.1 D (80.0-94.0) fl MCH 30.7 (27.0-31.0) pg MCHC 34.1 (33.0-37.0) g/dL RDW 17.6 H (11.5-14.5) % Plt Count 129 L D (130-400) K/uL MPV 7.7 (7.2-11.7) fl Neut % (Auto) 75.9 H (50.0-75.0) % Lymph % (Auto) 16.4 L (20.0-40.0) % [place] % (Auto) 6.8 (0.0-10.0) % Eos % (Auto) 0.5 (0.0-4.0) % Baso % (Auto) 0.4 (0.0-2.0) % Neut # 8.9 H (1.8-7.0) K/uL Lymph # 1.9 (1.0-4.3) K/uL [place] # 0.8 (0.0-0.8) K/uL Eos # 0.1 (0.0-0.7) K/uL Baso # 0.1 (0.0-0.2) K/uL Sodium 138 (132-148) mmol/l Potassium 4.0 (3.6-5.0) MMOL/L Chloride 105 (98-107) mmol/L Carbon Dioxide 26 (22-30) mmol/L Anion Gap 12 (10-20) BUN 38 H (9-20) mg/dl Creatinine 0.9 (0.8-1.5) mg/dL Est GFR ( Amer) > 60 Est GFR (Non-Af Amer) > 60 Random Glucose 100 (75-110) mg/dL Lactic Acid 1.8 (0.7-2.1) MMOL/L Calcium 8.1 L (8.4-10.2) mg/dL Total Creatine Kinase 49 L (55-170) U/L Lipase 30 (23-300) U/L Urine Color (YELLOW) Urine Clarity (Clear) Urine pH (5.0-8.0) Ur Specific [place] (1.003-1.030) Urine Protein (NEGATIVE) mg/dL Urine Glucose (UA) (Normal) mg/dL Urine Ketones (NEGATIVE) mg/dL Urine Blood (NEGATIVE) Urine Nitrate (NEGATIVE) Urine Bilirubin (NEGATIVE) Urine Urobilinogen (0.2-1.0) mg/dL Ur Leukocyte Esterase (Negative) Benjamin/uL Urine RBC (Auto) (0-3) /hpf Urine Microscopic WBC (0-5) /hpf Influenza Typ A,B (EIA) (NEGATIVE) Laboratory Results - last 24 hr 11/20/16 11/20/16 11/20/16 12:00 20:30 21:00 WBC 11.8 H RBC 3.20 L Hgb 9.8 L Hct 28.8 L MCV 90.1 D MCH 30.7 MCHC 34.1 RDW 17.6 H Plt Count 129 L D MPV 7.7 Neut % (Auto) 75.9 H Lymph % (Auto) 16.4 L [place] % (Auto) 6.8 Eos % (Auto) 0.5 Baso % (Auto) 0.4 Neut # 8.9 H Lymph # 1.9 [place] # 0.8 Eos # 0.1 Baso # 0.1 Sodium 138 Potassium 4.0 Chloride 105 Carbon Dioxide 26 Anion Gap 12 BUN 38 H Creatinine 0.9 Est GFR ( Amer) > 60 Est GFR (Non-Af Amer) > 60 Random Glucose 100 Lactic Acid 1.8 Calcium 8.1 L Total Creatine Kinase 49 L Lipase 30 Urine Color Yellow Urine Clarity Clear Urine pH 6.0 Ur Specific [place] 1.018 Urine Protein Negative Urine Glucose (UA) Neg Urine Ketones Negative Urine Blood Large Urine Nitrate Negative Urine Bilirubin Negative Urine Urobilinogen 0.2-1.0 Ur Leukocyte Esterase Neg Urine RBC (Auto) 274 H Urine Microscopic WBC 1 Influenza Typ A,B (EIA) Negative for flu a/b 11/21/16 05:10 WBC 8.2 RBC 2.99 L Hgb 9.3 L Hct 27.0 L MCV 90.5 MCH 31.1 H MCHC 34.4 RDW 17.9 H Plt Count 110 L MPV 8.2 Neut % (Auto) 74.8 Lymph % (Auto) 14.4 L [place] % (Auto) 9.6 Eos % (Auto) 0.8 Baso % (Auto) 0.4 Neut # 6.1 Lymph # 1.2 [place] # 0.8 Eos # 0.1 Baso # 0.0 Sodium 139 Potassium 3.6 Chloride 104 Carbon Dioxide 25 Anion Gap 14 BUN 20 Creatinine 0.8 Est GFR ( Amer) > 60 Est GFR (Non-Af Amer) > 60 Random Glucose 90 Lactic Acid Calcium 8.2 L Total Creatine Kinase Lipase Urine Color Urine Clarity Urine pH Ur Specific [place] Urine Protein Urine Glucose (UA) Urine Ketones Urine Blood Urine Nitrate Urine Bilirubin Urine Urobilinogen Ur Leukocyte Esterase Urine RBC (Auto) Urine Microscopic WBC Influenza Typ A,B (EIA) Fingerstick Blood Sugar Results: 97 Review of Systems - Review of Systems Review of Systems: 12 Systems reviewed with patient, found to be negative. Critical Care Progress Note - Extremities/Vascular Does the Patient have a Central Venous Catheter?: No - Nutrition Nutrition: Nutrition Category Date Time Status Liquid Diet [DIET] Diets 11/20/16 Lunch Active Assessment/Plan - Assessment and Plan (Free Text) Assessment: 56 y.o. male with hx of polysubstance abuse admitted for lower GI bleed hemodynamically stable with an Hgb of 9.3 this morning s/p Upper GI scope today showing non-bleeding duodenal Ulcer 1- Upper GI Bleed a- Advance diet as tolerated b- Discontinue fluids d- I.V. protonix 40mg IV Q12 e- Continue I.V. Ceftriaxone f- Continue I.V. Zforan g- Repeat CBC in a.m. h- If stable discharge to follow up with GI in 2 weeks 2- DVT prophylaxis a- SCD due to active bleed <Stefano Good M - Last Filed: 11/21/16 16:57> CCU Objective - Vital Signs / Intake & Output Vital Signs (Last 4 hours): Vital Signs Temp Pulse Resp BP Pulse Ox 11/21/16 13:05 98 F 76 15 84/52 L 98 Intake and Output (Last 8hrs): Intake & Output 11/21/16 11/21/16 11/21/16 06:59 14:59 22:59 Intake Total 560 200 Output Total 500 Balance 60 200 Intake: IV 560 200 Output: Urine 500 Urine, Voided 500 - Medications Active Medications: Active Medications Generic Name Dose Route Start Last Admin Trade Name Freq PRN Reason Stop Dose Admin Ceftriaxone Sodium 1 gm/ 100 mls @ 100 mls/hr 11/20/16 09:00 11/20/16 08:37 Sodium Chloride IVPB 100 mls/hr DAILY IGGY Administration Dextrose/Sodium Chloride 1,000 mls @ 75 mls/hr 11/21/16 11:00 Dextrose 5%-0.9% Ns 500 Ml IV .[id number] IGGY Ondansetron HCl 4 mg 11/20/16 00:39 Zofran Inj IVP Q6H PRN Nausea/Vomiting Pantoprazole Sodium 40 mg 11/21/16 21:00 Protonix Inj IVP Q12 IGGY - Patient Studies Lab Studies: Lab Studies 11/21/16 11/20/16 11/20/16 Range/Units 05:10 21:00 20:30 WBC 8.2 (4.8-10.8) K/uL RBC 2.99 L (4.40-5.90) Mil/uL Hgb 9.3 L (12.0-18.0) g/dL Hct 27.0 L (35.0-51.0) % MCV 90.5 (80.0-94.0) fl MCH 31.1 H (27.0-31.0) pg MCHC 34.4 (33.0-37.0) g/dL RDW 17.9 H (11.5-14.5) % Plt Count 110 L (130-400) K/uL MPV 8.2 (7.2-11.7) fl Neut % (Auto) 74.8 (50.0-75.0) % Lymph % (Auto) 14.4 L (20.0-40.0) % [place] % (Auto) 9.6 (0.0-10.0) % Eos % (Auto) 0.8 (0.0-4.0) % Baso % (Auto) 0.4 (0.0-2.0) % Neut # 6.1 (1.8-7.0) K/uL Lymph # 1.2 (1.0-4.3) K/uL [place] # 0.8 (0.0-0.8) K/uL Eos # 0.1 (0.0-0.7) K/uL Baso # 0.0 (0.0-0.2) K/uL Sodium 139 (132-148) mmol/l Potassium 3.6 (3.6-5.0) MMOL/L Chloride 104 (98-107) mmol/L Carbon Dioxide 25 (22-30) mmol/L Anion Gap 14 (10-20) BUN 20 (9-20) mg/dl Creatinine 0.8 (0.8-1.5) mg/dL Est GFR ( Amer) > 60 Est GFR (Non-Af Amer) > 60 Random Glucose 90 (75-110) mg/dL Calcium 8.2 L (8.4-10.2) mg/dL Urine Color Yellow (YELLOW) Urine Clarity Clear (Clear) Urine pH 6.0 (5.0-8.0) Ur Specific [place] 1.018 (1.003-1.030) Urine Protein Negative (NEGATIVE) mg/dL Urine Glucose (UA) Neg (Normal) mg/dL Urine Ketones Negative (NEGATIVE) mg/dL Urine Blood Large (NEGATIVE) Urine Nitrate Negative (NEGATIVE) Urine Bilirubin Negative (NEGATIVE) Urine Urobilinogen 0.2-1.0 (0.2-1.0) mg/dL Ur Leukocyte Esterase Neg (Negative) Benjamin/uL Urine RBC (Auto) 274 H (0-3) /hpf Urine Microscopic WBC 1 (0-5) /hpf Influenza Typ A,B (EIA) Negative for flu a/b (NEGATIVE) Laboratory Results - last 24 hr 11/20/16 11/20/16 11/21/16 20:30 21:00 05:10 WBC 8.2 RBC 2.99 L Hgb 9.3 L Hct 27.0 L MCV 90.5 MCH 31.1 H MCHC 34.4 RDW 17.9 H Plt Count 110 L MPV 8.2 Neut % (Auto) 74.8 Lymph % (Auto) 14.4 L [place] % (Auto) 9.6 Eos % (Auto) 0.8 Baso % (Auto) 0.4 Neut # 6.1 Lymph # 1.2 [place] # 0.8 Eos # 0.1 Baso # 0.0 Sodium 139 Potassium 3.6 Chloride 104 Carbon Dioxide 25 Anion Gap 14 BUN 20 Creatinine 0.8 Est GFR ( Amer) > 60 Est GFR (Non-Af Amer) > 60 Random Glucose 90 Calcium 8.2 L Urine Color Yellow Urine Clarity Clear Urine pH 6.0 Ur Specific [place] 1.018 Urine Protein Negative Urine Glucose (UA) Neg Urine Ketones Negative Urine Blood Large Urine Nitrate Negative Urine Bilirubin Negative Urine Urobilinogen 0.2-1.0 Ur Leukocyte Esterase Neg Urine RBC (Auto) 274 H Urine Microscopic WBC 1 Influenza Typ A,B (EIA) Negative for flu a/b Critical Care Progress Note - Nutrition Nutrition: Nutrition Category Date Time Status Emery [Altered GI/Hepatic Diet] [DIET] Diets 11/21/16 Lunch Active Attending/Attestation - Attestation I have personally seen and examined this patient.: Yes I have fully participated in the care of the patient.: Yes I have reviewed all pertinent clinical information: Yes Notes (Text): 11/21/16 16:57 Today: Monday, November 21, 2016 The Patient was seen and examined at the bedside, Medical records reviewed, all clinical/lab/hemodynamic/radiographic data were reviewed and management issues were discussed and formulated, Events reviewed Pain issues, skin care, head of the bed elevation, GI/DVT prophylaxis, glycemic control were addressed. Agree with above treatment plans as transcribed in Dr. Marie note
[2016-11-21] MEDS ORDERED: Lactated Ringer's 500 ML IV ONE (12:26)
[2016-11-21] MEDS ORDERED: Propofol 10 mg/ml Inj (20 ML) ONE (12:29)
--- NOTE | 2016-11-21 13:50 | PN ---
DATE: 11/20/2016 CRITICAL CARE PROGRESS NOTE LOCATION: The patient in ICU, bed 422. TIME SPENT: 35 minutes. The patient is seen and evaluated at the bedside. Events since admission reviewed by [facility] Joshua iyer. PAST MEDICAL, SURGICAL, AND SOCIAL HISTORY: Reviewed. A 56-year-old male with history of alcohol dependence, substance abuse, admitted with syncopal episod e followed by melena, noted to have a drop in the hemoglobin, hypotensive status post transfusion of packed red blood cells overnight. No further melenotic stool noted. Remains alert, awake, follows c ommands, appropriately. Denies headache, shortness of breath, chest pain, palpitation, abdominal kelly n. No further bowel movement. No chest pain. PHYSICAL EXAMINATION: VITAL SIGNS: Temperature 99.9, heart rate 84, respiratory rate 14-20, thoracoabdominal blood pressur e 90-112/54-71 with mean arterial pressure varying from 66-84. Telemetry: Sinus rhythm. Intake/out put: 2945, output 775. HEAD, EYES, EARS, NOSE, AND THROAT: Pupils are reactive. Conjunctivae are pale. Sclerae are white. NECK: Supple. Trachea is central. CHEST: Bilateral breath sounds. Clear to auscultation. HEART: Rhythm regular. S1, S2 normal. No S3, S4 gallop. No audible murmur or rub. ABDOMEN: Bowel sounds present, soft. EXTREMITIES: Warm, without edema. Peripheral pulses intact. Normal in intensity. Capillary refill normal. SKIN: Without rash. NEUROLOGIC: Nonfocal. CURRENT MEDICATIONS: Ceftriaxone 1 gram IV daily, multivitamin plus vitamin C with thiamine, folic a khang in D5W at 50 mL per hour. Zofran 4 mg IV q. 6 p.r.n., Protonix 40 at 20 mL per hour, 8 mg per ho ur. IMPRESSION: Admitted with syncopal episode of hypovolemic, hypotension, acute anemia associated with blood loss superimposed on chronic disease, gastrointestinal bleeding, upper versus lower, history o f alcohol and cocaine dependence. Continue with current medications. Closely monitor vital signs. Transfuse as needed to keep hemoglobin close to 10. Gastrointestinal evaluation to look for source o f bleeding. Continue Protonix drip. Hold deep venous thrombosis prophylaxis with anticoagulation se condary to gastrointestinal bleeding. Keep n.p.o. until seen by gastrointestinal consult. Dandre Bryant MD cc: 170 TT: 11/20/2016 10:55:53 Confirmation # [id number] Dictation # [id number] jn 11/21/2016 12:49:13
--- NOTE | 2016-11-21 14:37 | PQF GENQUE ---
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 OR; Unable to determine 11/20/2016:GI consult: admitted with hematemesis and melena. Pateint uses alcohol daily. Assesment:Gastrointestinal hemorrhage: Assessment: Massive upper GI bleeding. Despite alcohol history no evidence on labs or imaging of cirrhosis. No evidence of active bleeding since last night. Pantoprazole 8 mg/hour. May have clears today .NPO past midnight. CT shows possible lesion at EG junction. Upper endoscopy tomorrow. Status: Acute 11/21/2016:Endoscopy report: Esophagitis with no bleeding: a few localized, small non-bleeding erosions were found in the gastric antrum. There were no stigmata of recent bleeding. Biopsies for H-Pylori; One non-bleeding cratered duodenal ulcer with no stigmata of bleeding was found in the first part of the duodenum. This form is a permanent part of the medical record Clarification of your documentation is requested to better reflect the severity of illness and intensity of treatment of your patient. Indicators present [] Specify: [] [] Specify: [] [] Specify: [] [] Specify: [] Location in the medical record that reflects the above clinical findings: [] Treatment Provided: [] PHYSICIAN'S RESPONSE Based on your medical judgment of the clinical indicators outlined above please clarify the following: [] Practitioner response [] If unable to determine, please check the box, sign and date. Present On Admission (POA) Indicator: [] Present at the time of admission [] Not present at the time of admission [] Clinically Undetermined In responding to this query, please exercise your independent professional judgment. The fact that a question is asked does not imply that any particular answer is desired or expected. Thank you for your clarification on this documentation. If you have any questions please call. * Thank you, Daniella Arauz RN BSN ext. #[phone] [id number]
[2016-11-22 05:29] LABS: HEMATOCRIT 26.3 % (35.0-51.0); MEAN CELL VOLUME 91.4 fl (80.0-94.0); MEAN CORPUSCULAR HEMOGLOBIN 30.7 pg (27.0-31.0); MEAN CORPUSCULAR HGB CONC 33.6 g/dL (33.0-37.0); WHITE BLOOD COUNT 7.1 K/uL (4.8-10.8)
--- NOTE | 2016-11-22 07:35 | CP.PCM.PN ---
Subjective - Date & Time of Evaluation Date of Evaluation: 11/22/16 Time of Evaluation: 07:35 - Subjective Subjective: pt in bed w/o n/v/d/pain. no f/c. hgb 8 this am. refusing all monitoring overnight. wants to go home. sbp 98 this am. no bloody/back bm. was cleared by gi but concerns if pt is stable for dc. pt still asking to be dc home. no tremors. given ama discussion w/ chace de la cruz as witness pt states will think about it after 1 more hr of sleep. Objective - Vital Signs/Intake and Output Vital Signs (last 24 hours): Temp Pulse Resp BP Pulse Ox 99.1 F 83 17 90/60 L 99 11/21/16 20:00 11/21/16 20:00 11/21/16 20:00 11/21/16 20:00 11/21/16 20:00 Intake and Output: 11/22/16 11/22/16 06:59 18:59 Intake Total 120 Output Total 200 Balance -80 - Medications Medications: Current Medications Chlordiazepoxide (Librium) 25 mg PO Q8 PRN PRN Reason: alcohol withdrawal Ceftriaxone Sodium 1 gm/ (Sodium Chloride) 100 mls @ 100 mls/hr IVPB DAILY [facility] Last Admin: 11/21/16 09:00 Dose: 100 mls/hr Dextrose/Sodium Chloride (Dextrose 5%-0.9% Ns 500 Ml) 1,000 mls @ 75 mls/hr IV .[id number] IGGY Last Admin: 11/22/16 00:20 Dose: Not Given Ondansetron HCl (Zofran Inj) 4 mg IVP Q6H PRN PRN Reason: Nausea/Vomiting Pantoprazole Sodium (Protonix Inj) 40 mg IVP Q12 IGGY Last Admin: 11/21/16 21:33 Dose: 40 mg - Labs Labs: 11/22/16 04:25 11/21/16 05:10 PT 11.3 SECONDS (9.6-11.2) H 11/19/16 15:14 INR 1.09 (0.92-1.08) H 11/19/16 15:14 APTT 23.1 SECONDS (23.3-32.5) L 11/19/16 15:14 - Constitutional Appears: Well, Non-toxic, No Acute Distress - Head Exam Head Exam: ATRAUMATIC, NORMAL INSPECTION, NORMOCEPHALIC - Eye Exam Eye Exam: EOMI, Normal appearance, PERRL Pupil Exam: NORMAL ACCOMODATION, PERRL - ENT Exam ENT Exam: Mucous Membranes Moist, Normal Exam - Neck Exam Neck Exam: Full ROM, Normal Inspection. absent: Lymphadenopathy - Respiratory Exam Respiratory Exam: Clear to Ausculation Bilateral, NORMAL BREATHING PATTERN - Cardiovascular Exam Cardiovascular Exam: REGULAR RHYTHM, RRR, +S1, +S2. absent: Murmur - GI/Abdominal Exam GI & Abdominal Exam: Soft, Normal Bowel Sounds. absent: Tenderness - Rectal Exam Rectal Exam: NORMAL INSPECTION - Extremities Exam Extremities Exam: Full ROM, Normal Capillary Refill, Normal Inspection. absent : Joint Swelling, Pedal Edema - Back Exam Back Exam: NORMAL INSPECTION - Neurological Exam Neurological Exam: Alert, Awake, CN II-XII Intact, Normal Gait, Oriented x3 - Psychiatric Exam Psychiatric exam: Normal Affect, Normal Mood - Skin Skin Exam: Dry, Intact, Normal Color, Warm Assessment and Plan (1) Gastrointestinal hemorrhage Assessment & Plan: protonix gtt, rocephin po fluids ?? 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
--- NOTE | 2016-11-22 08:00 | CP.CCUPN ---
<Wade Marie - Last Filed: 11/22/16 10:26> CCU Subjective - Physician Review Events Since Last Encounter (Free Text): 11/22/16 10:13 Pt. seen this morning at bedside sleeping comfortably in NAD, arousable and responsive, and AAOx3. Pt. asking when he can leave. Advised patient continue medical management given recent acute GI bleed. 11/22/16 10:27 CCU Objective - Vital Signs / Intake & Output Intake and Output (Last 8hrs): Intake & Output 11/21/16 11/22/16 11/22/16 22:59 06:59 14:59 Intake Total 120 0 Output Total 1200 Balance -1080 0 Intake: IV 0 Oral 120 Output: Urine 1200 Urine, Voided 1200 Other: # Voids Urine, Voided 1 - Physical Exam Head: Positive for: Atraumatic, Normocephalic Conjunctiva: Negative for: Icteric Neck: Positive for: Normal Range of Motion Respiratory/Chest: Positive for: Clear to Auscultation Cardiovascular: Positive for: Regular Rate and Rhythm, Normal S1, S2 Abdomen: Negative for: Tenderness Lower Extremity: Positive for: Normal Inspection Neurological: Positive for: Normal Sensory Function, Memory Normal Skin: Positive for: Warm Psychiatric: Positive for: Alert, Oriented x 3 - Medications Active Medications: Active Medications Generic Name Dose Route Start Last Admin Trade Name Freq PRN Reason Stop Dose Admin Chlordiazepoxide 25 mg 11/21/16 18:11 Librium PO Q8 PRN alcohol withdrawal Ceftriaxone Sodium 1 gm/ 100 mls @ 100 mls/hr 11/20/16 09:00 11/21/16 09:00 Sodium Chloride IVPB 100 mls/hr DAILY IGGY Administration Dextrose/Sodium Chloride 1,000 mls @ 75 mls/hr 11/21/16 11:00 11/22/16 00:20 Dextrose 5%-0.9% Ns 500 Ml IV Not Given .[id number] IGGY Ondansetron HCl 4 mg 11/20/16 00:39 Zofran Inj IVP Q6H PRN Nausea/Vomiting Pantoprazole Sodium 40 mg 11/21/16 21:00 11/21/16 21:33 Protonix Inj IVP 40 mg Q12 IGGY Administration - Patient Studies Lab Studies: Microbiology Studies 11/20/16 20:30 Blood Culture - Preliminary Blood NO GROWTH AFTER 24 HOURS 11/20/16 20:30 Blood Culture - Preliminary Blood NO GROWTH AFTER 24 HOURS 11/20/16 09:10 MRSA Culture (Admit) - Final Naris MRSA NOT DETECTED Lab Studies 11/22/16 Range/Units 04:25 WBC 7.1 (4.8-10.8) K/uL RBC 2.88 L (4.40-5.90) Mil/uL Hgb 8.8 L (12.0-18.0) g/dL Hct 26.3 L (35.0-51.0) % MCV 91.4 (80.0-94.0) fl MCH 30.7 (27.0-31.0) pg MCHC 33.6 (33.0-37.0) g/dL RDW 17.0 H (11.5-14.5) % Plt Count 119 L (130-400) K/uL Laboratory Results - last 24 hr 11/22/16 04:25 WBC 7.1 RBC 2.88 L Hgb 8.8 L Hct 26.3 L MCV 91.4 MCH 30.7 MCHC 33.6 RDW 17.0 H Plt Count 119 L Fingerstick Blood Sugar Results: 97 Review of Systems - Review of Systems Review of Systems: 12 ROS reviewed with patient and all found to be in normal limits. Critical Care Progress Note - Nutrition Nutrition: Nutrition Category Date Time Status [place] [Altered GI/Hepatic Diet] [DIET] Diets 11/21/16 Lunch Active Assessment/Plan - Assessment and Plan (Free Text) Assessment: 56 y.o. male with hx of polysubstance abuse admitted for lower GI bleed hemodynamically stable with an Hgb of 9.3 this morning s/p Upper GI scope today showing non-bleeding duodenal Ulcer 1- Upper GI Bleed a- Advance diet as tolerated- Current Anderson diet b- Fluids Discontinued d- I.V. protonix 40mg IV Q12 e- Continue I.V. Ceftriaxone f- Continue I.V. Zforan g- H&H today 8.8 down from 9.3 yesterday h- Recommend current medical management i- GI Dr. Snyder on board- Input appreciated 2- ETOH withdrawl a- Librium 25mg po Q8 3- DVT prophylaxis a- SCD for now <Latef,Stefano M - Last Filed: 11/22/16 13:31> CCU Objective - Vital Signs / Intake & Output Intake and Output (Last 8hrs): Intake & Output 11/21/16 11/22/16 11/22/16 22:59 06:59 14:59 Intake Total 120 0 0 Output Total 1200 Balance -1080 0 0 Intake: IV 0 0 Oral 120 0 Output: Urine 1200 Urine, Voided 1200 Other: # Voids Urine, Voided 1 - Patient Studies Lab Studies: Microbiology Studies 11/20/16 21:00 Gram Stain - Final Sputum Sputum Culture - Preliminary NORMAL ORAL BHAVYA 11/20/16 21:00 Urine Culture - Final Urine,Clean Catch No Growth (<1,000 CFU/ML) 11/20/16 20:30 Blood Culture - Preliminary Blood NO GROWTH AFTER 24 HOURS 11/20/16 20:30 Blood Culture - Preliminary Blood NO GROWTH AFTER 24 HOURS 11/20/16 09:10 MRSA Culture (Admit) - Final Naris MRSA NOT DETECTED Lab Studies 11/22/16 Range/Units 04:25 WBC 7.1 (4.8-10.8) K/uL RBC 2.88 L (4.40-5.90) Mil/uL Hgb 8.8 L (12.0-18.0) g/dL Hct 26.3 L (35.0-51.0) % MCV 91.4 (80.0-94.0) fl MCH 30.7 (27.0-31.0) pg MCHC 33.6 (33.0-37.0) g/dL RDW 17.0 H (11.5-14.5) % Plt Count 119 L (130-400) K/uL Laboratory Results - last 24 hr 11/22/16 04:25 WBC 7.1 RBC 2.88 L Hgb 8.8 L Hct 26.3 L MCV 91.4 MCH 30.7 MCHC 33.6 RDW 17.0 H Plt Count 119 L Critical Care Progress Note - Nutrition Nutrition: Nutrition Category Date Time Status [place] [Altered GI/Hepatic Diet] [DIET] Diets 11/21/16 Lunch Active Attending/Attestation - Attestation I have personally seen and examined this patient.: Yes I have fully participated in the care of the patient.: Yes I have reviewed all pertinent clinical information: Yes Notes (Text): 11/22/16 Today: Tuesday, November 22, 2016 The Patient was seen and examined at the bedside, Medical records reviewed, all clinical/lab/hemodynamic/radiographic data were reviewed and management issues were discussed and formulated, Events reviewed Pain issues, skin care, head of the bed elevation, GI/DVT prophylaxis, glycemic control were addressed. Agree with above treatment plans as transcribed in Dr. Frank ortega
[2016-11-22 08:18] VITALS: BP 98/50; PULSE 72; RESP 16; TEMP 98; O2SAT 100
--- NOTE | 2016-11-22 10:35 | CP.PCM.DIS ---
Provider - Provider Date of Admission: 11/20/16 00:37 Attending physician: Shani Reza MD Time Spent in preparation of Discharge (in minutes): 15 Diagnosis - Discharge Diagnosis (1) Gastrointestinal hemorrhage Status: Acute (2) DVT prophylaxis Status: Acute Hospital Course - Lab Results Lab Results: Micro Results 11/20/16 21:00 Sputum Sputum Culture - Preliminary NORMAL ORAL BHAVYA 11/20/16 21:00 Urine,Clean Catch Urine Culture - Final No Growth (<1,000 CFU/ML) 11/20/16 20:30 Blood Blood Culture - Preliminary NO GROWTH AFTER 24 HOURS 11/20/16 20:30 Blood Blood Culture - Preliminary NO GROWTH AFTER 24 HOURS 11/20/16 09:10 Naris MRSA Culture (Admit) - Final MRSA NOT DETECTED Most Recent Lab Values WBC 7.1 K/uL (4.8-10.8) 11/22/16 04:25 RBC 2.88 Mil/uL (4.40-5.90) L 11/22/16 04:25 Hgb 8.8 g/dL (12.0-18.0) L 11/22/16 04:25 Hct 26.3 % (35.0-51.0) L 11/22/16 04:25 MCV 91.4 fl (80.0-94.0) 11/22/16 04:25 MCH 30.7 pg (27.0-31.0) 11/22/16 04:25 MCHC 33.6 g/dL (33.0-37.0) 11/22/16 04:25 RDW 17.0 % (11.5-14.5) H 11/22/16 04:25 Plt Count 119 K/uL (130-400) L 11/22/16 04:25 MPV 8.2 fl (7.2-11.7) 11/21/16 05:10 Neut % (Auto) 74.8 % (50.0-75.0) 11/21/16 05:10 Lymph % (Auto) 14.4 % (20.0-40.0) L 11/21/16 05:10 [place] % (Auto) 9.6 % (0.0-10.0) 11/21/16 05:10 Eos % (Auto) 0.8 % (0.0-4.0) 11/21/16 05:10 Baso % (Auto) 0.4 % (0.0-2.0) 11/21/16 05:10 Neut # 6.1 K/uL (1.8-7.0) 11/21/16 05:10 Lymph # 1.2 K/uL (1.0-4.3) 11/21/16 05:10 [place] # 0.8 K/uL (0.0-0.8) 11/21/16 05:10 Eos # 0.1 K/uL (0.0-0.7) 11/21/16 05:10 Baso # 0.0 K/uL (0.0-0.2) 11/21/16 05:10 PT 11.3 SECONDS (9.6-11.2) H 11/19/16 15:14 INR 1.09 (0.92-1.08) H 11/19/16 15:14 APTT 23.1 SECONDS (23.3-32.5) L 11/19/16 15:14 D-Dimer, Quantitative 0.25 mg/L FEU (0-0.50) 11/19/16 15:14 Sodium 139 mmol/l (132-148) 11/21/16 05:10 Potassium 3.6 MMOL/L (3.6-5.0) 11/21/16 05:10 Chloride 104 mmol/L (98-107) 11/21/16 05:10 Carbon Dioxide 25 mmol/L (22-30) 11/21/16 05:10 Anion Gap 14 (10-20) 11/21/16 05:10 BUN 20 mg/dl (9-20) 11/21/16 05:10 Creatinine 0.8 mg/dL (0.8-1.5) 11/21/16 05:10 Est GFR ( Amer) > 60 11/21/16 05:10 Est GFR (Non-Af Amer) > 60 11/21/16 05:10 POC Glucose (mg/dL) 97 mg/dL (65-110) 11/19/16 15:04 Random Glucose 90 mg/dL (75-110) 11/21/16 05:10 Lactic Acid 1.8 MMOL/L (0.7-2.1) 11/20/16 12:00 Calcium 8.2 mg/dL (8.4-10.2) L 11/21/16 05:10 Magnesium 1.6 MG/DL (1.6-2.3) 11/19/16 15:59 Total Bilirubin 1.1 mg/dl (0.2-1.3) 11/19/16 15:59 AST 25 U/L (17-59) 11/19/16 15:59 ALT 26 U/L (21-72) 11/19/16 15:59 Alkaline Phosphatase 81 U/L (38-126) 11/19/16 15:59 Total Creatine Kinase 49 U/L (55-170) L 11/20/16 12:00 Troponin I < 0.0120 ng/mL (0.00-0.120) 11/19/16 15:59 NT-Pro-B Natriuret Pep 139 pg/ml (0-900) 11/19/16 23:00 Total Protein 6.6 G/DL (6.3-8.2) 11/19/16 15:59 Albumin 3.9 g/dL (3.5-5.0) 11/19/16 15:59 Globulin 2.8 gm/dL (2.2-3.9) 11/19/16 15:59 Albumin/Globulin Ratio 1.4 (1.0-2.1) 11/19/16 15:59 Lipase 30 U/L (23-300) 11/20/16 12:00 TSH 3rd Generation 3.05 mIU/ML (0.46-4.68) 11/19/16 15:59 Urine Color Yellow (YELLOW) 11/20/16 21:00 Urine Clarity Clear (Clear) 11/20/16 21:00 Urine pH 6.0 (5.0-8.0) 11/20/16 21:00 Ur Specific [place] 1.018 (1.003-1.030) 11/20/16 21:00 Urine Protein Negative mg/dL (NEGATIVE) 11/20/16 21:00 Urine Glucose (UA) Neg mg/dL (Normal) 11/20/16 21:00 Urine Ketones Negative mg/dL (NEGATIVE) 11/20/16 21:00 Urine Blood Large (NEGATIVE) 11/20/16 21:00 Urine Nitrate Negative (NEGATIVE) 11/20/16 21:00 Urine Bilirubin Negative (NEGATIVE) 11/20/16 21:00 Urine Urobilinogen 0.2-1.0 mg/dL (0.2-1.0) 11/20/16 21:00 Ur Leukocyte Esterase Neg Benjamin/uL (Negative) 11/20/16 21:00 Urine RBC (Auto) 274 /hpf (0-3) H 11/20/16 21:00 Urine Microscopic WBC 1 /hpf (0-5) 11/20/16 21:00 Ur Squamous Epith Cells 1 /hpf (0-5) 11/19/16 16:59 Hyaline Casts 0-2 /hpf (0-2) 11/19/16 16:59 Urine Opiates Screen Negative (NEGATIVE) 11/19/16 16:59 Urine Methadone Screen Negative (NEGATIVE) 11/19/16 16:59 Ur Barbiturates Screen Negative (NEGATIVE) 11/19/16 16:59 Ur Phencyclidine Scrn Negative (NEGATIVE) 11/19/16 16:59 Ur Amphetamines Screen Negative (NEGATIVE) 11/19/16 16:59 U Benzodiazepines Scrn Negative (NEGATIVE) 11/19/16 16:59 U Oth Cocaine Metabols Positive (NEGATIVE) H 11/19/16 16:59 U Cannabinoids Screen Negative (NEGATIVE) 11/19/16 16:59 Alcohol, Quantitative < 10 mg/dl (0-10) 11/19/16 15:59 Influenza Typ A,B (EIA) Negative for flu a/b (NEGATIVE) 11/20/16 20:30 Blood Type O POSITIVE 11/20/16 00:30 Blood Type Confirm O POSITIVE 11/19/16 20:49 Antibody Screen Negative 11/20/16 00:30 Crossmatch See Detail 11/20/16 00:30 BBK History Checked Patient has bt 11/20/16 00:30 Discharge Exam - Head Exam Head Exam: ATRAUMATIC, NORMAL INSPECTION, NORMOCEPHALIC Discharge Plan - Discharge Medications Prescriptions: Pantoprazole [Protonix] 40 mg PO DAILY #30 ect Ondansetron ODT [Zofran ODT] 4 mg PO Q8H PRN #30 odt PRN Reason: Nausea/Vomiting - Follow Up Plan Condition: CRITICAL Disposition: AGAINST MEDICAL ADVICE Additional Instructions: pt chose to sign ama after being presented w/ risk and benefits. rx for protonix and zofran. advised alcohol cessation. f/u rmg 1 day, gi as directed. rted prn. meds per med rec fianl dx-gib, alcohol abuse, cocaine abuse.
== END 2016-11-22 09:50 | disposition left against medical advice (07) | DRG 378 ==
LOC: H.ER 14:49 → H.EROBSV 18:00 → H.ERHOLD 11-20 00:37 → H.ICU/CCU 11-20 00:37 → OBSVTOIN 11-20 00:37 → H.ICU/CCU 11-20 01:56
PROVIDERS: ADMIT Family Medicine; ATTEND Family Medicine
PROC: 30233N1 Transfusion of Nonautologous Red Blood Cells into Peripheral Vein, Percutaneous Approach (ICD-10-PCS; 2016-11-20)
PROC: 3E0234Z Introduction of Serum, Toxoid and Vaccine into Muscle, Percutaneous Approach (ICD-10-PCS; 2016-11-20)
PROC: 0DB78ZX Excision of Stomach, Pylorus, Via Natural or Artificial Opening Endoscopic, Diagnostic (ICD-10-PCS; 2016-11-21)
PROC: 0DB38ZX Excision of Lower Esophagus, Via Natural or Artificial Opening Endoscopic, Diagnostic (ICD-10-PCS; 2016-11-21)
PROC: 0DB98ZX Excision of Duodenum, Via Natural or Artificial Opening Endoscopic, Diagnostic (ICD-10-PCS; principal; 2016-11-21 14:45)
DX: K92.0 Hematemesis (principal); F10.239 Alcohol dependence with withdrawal, unspecified; I95.89 Other hypotension; D62 Acute posthemorrhagic anemia; K21.0 Gastro-esophageal reflux disease with esophagitis; K26.9 Duodenal ulcer, unspecified as acute or chronic, without hemorrhage or perforation; K92.1 Melena; E86.1 Hypovolemia; F14.10 Cocaine abuse, uncomplicated; Z23 Encounter for immunization; E78.00 Pure hypercholesterolemia, unspecified; Z87.891 Personal history of nicotine dependence